=== PATIENT | male | born 1955 ===

== ENCOUNTER 2017-08-24 07:59 | Emergency (ER) | payer SELFPAY ==
[2017-08-24 08:13] VITALS: BP 123/78
--- NOTE | 2017-08-24 08:18 | UC ---
Laceration HPI - HPI Summary HPI Summary: Pt presents for suture removal to left hand anterior mid third finger. Three sutures placed at [facility] on 08/11/17. - History Of Current Complaint Chief Complaint: UCGeneralIllness Stated Complaint: SUTURE REMOVAL Time Seen by Provider: 08/24/17 08:14 Hx Obtained From: Patient Laceration Location: Finger Mechanism Of Injury: Blunt Trauma Onset/Duration: Sudden Onset Severity: Mild Pain Intensity: 0 Aggravating Factors: Nothing Related History: Dominant Hand Right - Allergies/Home Medications Allergies/Adverse Reactions: Allergies Allergy/AdvReac Type Severity Reaction Status Date / Time No Known Allergies Allergy Verified 08/24/17 08:13 Home Medications: Home Medications NK [No Home Medications Reported] 08/24/17 [History Confirmed 08/24/17] PMH/Surg Hx/FS Hx/Imm Hx Previously Healthy: Yes - Surgical History Surgical History: Yes Surgery Procedure, Year, and Place: hand laceration - Family History Known Family History: Positive: Cardiac Disease - Social History Occupation: Employed Full-time Lives: With Family Alcohol Use: Occasionally Substance Use Type: None Smoking Status (MU): Former Smoker Have You Smoked in the Last Year: No - Immunization History Hx Tetanus, Diphtheria Vaccination: No Review of Systems Constitutional: Negative Skin: Other - sutures placed on 08/11/17 left hand, 3rd finger, anterior mid Eyes: Negative ENT: Negative Respiratory: Negative Cardiovascular: Negative Gastrointestinal: Negative Genitourinary: Negative Motor: Negative Neurovascular: Negative Musculoskeletal: Negative Neurological: Negative Psychological: Negative Is Patient Immunocompromised?: No All Other Systems Reviewed And Are Negative: Yes Physical Exam Triage Information Reviewed: Yes Appearance: Well-Appearing Vital Signs: Initial Vital Signs Temp 98.6 F 08/24/17 08:08 Pulse 72 08/24/17 08:08 Resp 16 08/24/17 08:08 BP 123/78 08/24/17 08:08 Pulse Ox 96 08/24/17 08:08 Vital Signs Reviewed: Yes Eye Exam: Normal ENT Exam: Normal ENT: Positive: Hearing grossly normal Respiratory: Positive: No respiratory distress Musculoskeletal Exam: Normal Neurological Exam: Normal Psychological Exam: Normal Skin Exam: Other - sutures in tact left 3rd finger no erythema, no drainage or tenderness at site, wound healing Laceration Course/Dx - Differential Dx - Laceration/Wound Differental Diagnoses: Healing Wound, Suture Removal Provider Diagnoses: suture removal of three sutures,. healing wound Discharge - Sign-Out/Discharge Documenting (check all that apply): Discharge - Discharge Plan Condition: Stable Disposition: HOME Patient Education Materials: Stitches Removal (ED) Referrals: Non Staff,Doctor [Primary Care Provider] - - Billing Disposition and Condition Condition: STABLE Disposition: HOME
== END 2017-08-24 08:23 | disposition home or self-care (01) ==
LOC: UCCORT 07:59
DX: S61.213D Laceration without foreign body of left middle finger without damage to nail, subsequent encounter (principal); X58.XXXD Exposure to other specified factors, subsequent encounter; Z87.891 Personal history of nicotine dependence
CPT/HCPCS: 99211; G0463